=== PATIENT | female | born 1995 | race Caucasian/White ===

== ENCOUNTER 2023-09-03 20:15 | Inpatient (IN) | payer BC, SELFPAY ==
[2023-09-03] MEDS ORDERED: Ketorolac Tromethamine 30 MG/ML VIAL ONE (20:59)
[2023-09-03 21:23] LABS: #Eosinphils 0.2 10x3/uL (0.0-0.5); #Monocytes 1.1 10x3/uL (0.0-1.1); #Neutrophils 7.5 10x3/uL (1.5-8.4); %Basophils 0.3 % (0.0-2.0); %Eosinophils 1.3 % (0.0-6.0); %Lymphocytes 24.8 % (18.0-47.0); %Neutrophils 64.3 % (40.0-75.0); Hematocrit 36.5 % (34.9-44.5); Hemoglobin 12.6 g/dL (12.0-15.5); Mean Corpuscular HGB CONC 34.5 g/dL (32.0-36.0); Mean Corpuscular Hemoglobin 30.6 pg (27.0-33.0); Mean Corpuscular Volume 88.6 fl (81.6-98.3); Mean Platelet Volume 9.7 fl (7.4-10.4); Platelet Count 234 10x3/uL (150-450); RBC Distribution Width 11.8 % (11.5-14.5); Red Blood Cell (RBC) Count 4.12 10x6/uL (3.90-5.03); White Blood Cell (WBC) Count 11.6 10x3/uL (3.5-10.5)
[2023-09-03 21:31] LABS: ALT (SGPT) 29 U/L (8-55); AST (SGOT) 24 U/L (5-34); Albumin 4.5 g/dL (3.5-5.0); Alkaline Phosphatase 44 U/L (40-110); Anion Gap 16 mmol/L (10-20); BUN (Urea Nitrogen) 9 mg/dL (7.0-18.7); Bilirubin, Total 0.4 mg/dL (0.2-1.2); Calc. Creatinine Clearance 0 mL/min (70-130); Calcium 9.5 mg/dL (7.8-10.44); Carbon Dioxide 21 mmol/L (22-29); Chloride 104 mmol/L (98-107); Estimated GFR 114; Globulin 3.3 g/dL (2.4-3.5); Glucose 100 mg/dL (70-105); Potassium 3.3 mmol/L (3.5-5.1); Protein, Total 7.8 g/dL (6.0-8.3); Sodium 138 mmol/L (136-145)
[2023-09-03 21:35] LABS: Bilirubin Neg (Negative); Blood, Urine 250 (Negative); Clarity Slightly Cloudy (Clear); Glucose, Urine (Dipstick) Normal (Negative); Ketone, Urine Negative (Negative); Leukocyte 100 (Negative); Nitrite Negative (Negative); Protein, Urine (Dipstick) 30 mg/dl (Neg-Trace); Urobilinogen Normal mg/dL (Less than 2)
[2023-09-03 21:55] LABS: RBC/HPF 21-50 HPF (0-3)
[2023-09-03 21:57] LABS: CAUTI Indications for Culture Pelvic or flank pain; Squamous Epithelial 0-3 HPF (0-3)
[2023-09-03 21:58] LABS: Bacteria/HPF None Seen HPF (None Seen)
[2023-09-03 21:59] LABS: Urine Culture Reflex No No
[2023-09-03] MEDS ORDERED: Acetaminophen 500 MG TAB PO PRN (22:29)
[2023-09-03] MEDS ORDERED: Ondansetron PF 4 MG/2 ML Vial IVP PRN (22:29)
[2023-09-03] MEDS ORDERED: Misoprostol 100 MCG TAB VAG SCH (22:45)
[2023-09-03] MEDS ORDERED: Misoprostol 200 MCG TAB ONE (23:43)
[2023-09-04 00:05] VITALS: BMI 24.3
[2023-09-04] MEDS ORDERED: Misoprostol 100 MCG TAB VAG SCH ×2 (01:00→05:00)
[2023-09-04] MEDS ORDERED: Fentanyl 100 MCG/2 ML VIAL SLOW IVP PRN (01:02)
[2023-09-04] MEDS ORDERED: fentaNYL 50 mcg/mL 1 mL Vial SLOW IVP PRN ×2 (01:05→02:27)
[2023-09-04] MEDS ORDERED: Misoprostol 200 MCG TAB SL SCH (03:45)
[2023-09-04] MEDS ORDERED: fentaNYL 50 mcg/mL 1 mL Vial SLOW IVP SCH (06:15)
[2023-09-04] MEDS ORDERED: Ibuprofen 600 MG TAB PO PRN (09:08)
[2023-09-04] MEDS ORDERED: HYDROcodone/Acetaminophen 5/325 mg Tablet PO PRN (09:09)
[2023-09-06 14:32] LABS: Reference Lab Name LABCORP
== END 2023-09-04 11:10 | disposition home or self-care (01) | DRG 807 ==
LOC: CSHERS 20:15 → CSHLD 21:47
PROVIDERS: ADMIT Family Medicine; ATTEND Family Medicine
PROC: 10E0XZZ Delivery of Products of Conception, External Approach (ICD-10-PCS; principal; 2023-09-04)
PROC: 3E0P7VZ Introduction of Hormone into Female Reproductive, Via Natural or Artificial Opening (ICD-10-PCS; 2023-09-04)
DX: O36.4XX0 Maternal care for intrauterine death, not applicable or unspecified (principal); Z37.1 Single stillbirth; Z3A.15 15 weeks gestation of pregnancy
CPT/HCPCS: 76815; 80053; 81001; 84702; 85025; 87086; 88233; 88262; 88291; J1885; J2405; J3010

== ENCOUNTER 2024-09-17 10:25 | Day surgery (SDC) | payer BC ==
[2024-09-17 10:59] VITALS: BMI 30.2
[2024-09-17 11:46] LABS: Fetal Membranes Rupture No Membranes Rupture (No Rupture)
== END 2024-09-17 13:10 | disposition home or self-care (01) ==
LOC: CSHLD/OP 10:25
PROVIDERS: ATTEND Obstetrics & Gynecology
DX: O23.593 Infection of other part of genital tract in pregnancy, third trimester (principal); N89.8 Other specified noninflammatory disorders of vagina; Z03.71 Encounter for suspected problem with amniotic cavity and membrane ruled out; Z3A.37 37 weeks gestation of pregnancy
CPT/HCPCS: 84112; 99283

== ENCOUNTER 2024-10-12 12:02 | Day surgery (SDC) | payer BC, OTHER ==
[2024-10-12] MEDS ORDERED: hydrALAZINE 20 MG/ML VIAL SLOW IVP PRN (12:55)
[2024-10-12] MEDS: Acetaminophen 500 MG TAB PO SCH (14:10)
== END 2024-10-12 14:43 | disposition home or self-care (01) ==
LOC: CSHLD/OP 12:02
PROVIDERS: ATTEND Obstetrics & Gynecology
DX: O99.891 Other specified diseases and conditions complicating pregnancy (principal); R10.30 Lower abdominal pain, unspecified; O99.283 Endocrine, nutritional and metabolic diseases complicating pregnancy, third trimester; E06.3 Autoimmune thyroiditis; O09.293 Supervision of pregnancy with other poor reproductive or obstetric history, third trimester; Z79.890 Hormone replacement therapy; Z3A.40 40 weeks gestation of pregnancy; Z79.82 Long term (current) use of aspirin
CPT/HCPCS: 99284

== ENCOUNTER 2024-10-12 19:00 | Inpatient (IN) | payer OTHER, BC ==
[2024-10-12] MEDS: Lactated Ringer's 1,000 ML IV SCH ×2 (17:30)
[2024-10-12] MEDS: Misoprostol 100 MCG TAB VAG SCH ×2 (17:30→21:42)
[~2024-10-12 19:00] MED LIST: Carboprost 250 MCG/ML AMP IM PRN; Diphenoxylate HCl/Atropine Tablet PO PRN; Lidocaine 1% (PF) 30 ML VIAL SC PRN; Methylergonovine 0.2 MG/ML VIAL IM PRN; Misoprostol 200 MCG TAB PR PRN; Oxytocin 30 units/NS 500 ML 500 ML IV SCH; Promethazine HCl 25 MG/ML VIAL IM PRN; Tranexamic Acid 1,000 MG/10 ML VIAL IVP PRN; fentaNYL 50 mcg/mL 1 mL Vial SLOW IVP PRN; hydrALAZINE 20 MG/ML VIAL SLOW IVP PRN
[2024-10-12 20:35] VITALS: BMI 32.8
[2024-10-12 21:23] LABS: Hematocrit 31.5 % (34.9-44.5); Mean Corpuscular HGB CONC 34.9 g/dL (32.0-36.0); Mean Corpuscular Hemoglobin 32.4 pg (27.0-33.0); Mean Corpuscular Volume 92.6 fL (81.6-98.3); Mean Platelet Volume 10.7 fL (7.4-10.4); Platelet Count 167 10x3/uL (150-450); RBC Distribution Width 13.4 % (11.5-14.5); White Blood Cell (WBC) Count 10.5 10x3/uL (3.5-10.5)
[2024-10-12 22:00] LABS: HBsAg Index 0.23 S/CO (0-0.99); Hep B Surf Ag - L&D Non-Reactive S/CO (NonReactive)
[2024-10-12 22:01] LABS: Syphilis Antibody Nonreactive (Nonreactive)
[2024-10-13] MEDS: fentaNYL/Ropivacaine Epidural 100 ML ONE (00:06)
[2024-10-13] MEDS ORDERED: ePHEDrine Sulfate 50 MG/10 ML VIAL SLOW IVP PRN (00:27)
[2024-10-13] MEDS ORDERED: Promethazine HCl 25 MG/ML VIAL IM PRN ×2 (00:27→15:34)
[2024-10-13] MEDS ORDERED: Moisturizing Cream (Eucerin) 113 GM JAR TOP PRN (00:27)
[2024-10-13] MEDS ORDERED: Naloxone HCl 0.4 mg/ml Vial IVP PRN ×2 (00:27)
[2024-10-13] MEDS ORDERED: Ondansetron PF 4 MG/2 ML Vial IVP PRN ×2 (00:27→15:34)
[2024-10-13] MEDS ORDERED: Lactated Ringer's 500 ML IV PRN (00:27)
[2024-10-13] MEDS ORDERED: diphenhydrAMINE 50 MG/ML VIAL IVP PRN (00:27)
[2024-10-13] MEDS ORDERED: Communication Order-Pharmacy FS SCH (00:30)
[2024-10-13] MEDS: Ondansetron PF 4 MG/2 ML Vial IVP PRN (00:47)
[2024-10-13] MEDS: Oxytocin 30 units/NS 500 ML 500 ML IV SCH ×2 (05:55→15:50)
[2024-10-13] MEDS: fentaNYL 2 mcg/Ropivacaine 0.2% Epidural 100 ML CADD EPIDURAL SCH (08:18)
[2024-10-13] MEDS ORDERED: Lanolin Ointment 7 GM TUBE TOP PRN (15:34)
[2024-10-13] MEDS ORDERED: Methylergonovine 0.2 MG/ML VIAL IM PRN (15:34)
[2024-10-13] MEDS ORDERED: Preparation H Ointment 28 GM TUBE PR PRN (15:34)
[2024-10-13] MEDS ORDERED: Misoprostol 200 MCG TAB VAG PRN (15:34)
[2024-10-13] MEDS ORDERED: Bisacodyl 10 MG SUPP PR PRN (15:34)
[2024-10-13] MEDS ORDERED: hydrALAZINE 20 MG/ML VIAL SLOW IVP PRN (15:34)
[2024-10-13] MEDS: Acetaminophen 500 MG TAB PO PRN (16:08)
[2024-10-13 17:02] LABS: Hemoglobin 10.9 g/dL (12.0-15.5); Platelet Count 144 10x3/uL (150-450)
[2024-10-13] MEDS: Ferrous Sulfate 325 MG TAB PO SCH (17:03)
[2024-10-13] MEDS: HYDROcodone/Acetaminophen 5/325 mg Tablet PO SCH (18:52)
[2024-10-13] MEDS: Ibuprofen 800 MG TAB PO SCH (19:39)
[2024-10-13] MEDS ORDERED: HYDROcodone/Acetaminophen 5/325 mg Tablet PO PRN (21:13)
[2024-10-13] MEDS: Benzocaine-Menthol 82.5 ML CAN TOP PRN (21:36)
[2024-10-13] MEDS: Docusate 100 MG CAP PO SCH (21:36)
[2024-10-13] MEDS: Acetaminophen 325 MG TAB PO PRN (22:57)
[2024-10-14] MEDS: Ibuprofen 800 MG TAB PO SCH (04:27)
[2024-10-14] MEDS: Levothyroxine Sodium 25 MCG TAB PO SCH (05:34)
[2024-10-14 05:44] LABS: Hematocrit 28.9 % (34.9-44.5); Hemoglobin 9.7 g/dL (12.0-15.5)
[2024-10-14] MEDS: Prenatal Vitamin 1 TAB PO SCH (08:17)
[2024-10-14] MEDS: Milk Of Magnesia 30 ML UDCUP PO PRN (13:30)
[2024-10-15 08:24] VITALS: BP 107/77; TEMP 98.3
== END 2024-10-15 13:15 | disposition home or self-care (01) | DRG 768 ==
LOC: CSHLD 20:17 → CSHPP 10-13 20:35
PROVIDERS: ADMIT Obstetrics & Gynecology; ATTEND Obstetrics & Gynecology
PROC: 10E0XZZ Delivery of Products of Conception, External Approach (ICD-10-PCS; principal; 2024-10-12)
PROC: 0DQR0ZZ Repair Anal Sphincter, Open Approach (ICD-10-PCS; 2024-10-12)
DX: O99.284 Endocrine, nutritional and metabolic diseases complicating childbirth (principal); Z37.0 Single live birth; D62 Acute posthemorrhagic anemia; O48.0 Post-term pregnancy; O70.21 Third degree perineal laceration during delivery, IIIa; E06.3 Autoimmune thyroiditis; Z79.890 Hormone replacement therapy; Z79.82 Long term (current) use of aspirin; Z79.899 Other long term (current) drug therapy; O76 Abnormality in fetal heart rate and rhythm complicating labor and delivery; O99.03 Anemia complicating the puerperium; Z3A.40 40 weeks gestation of pregnancy
CPT/HCPCS: 36415; 51702; 85014; 85018; 85027; 85049; 86780; 86850; 86900; 86901; 87340; J2405; J2590; J7120